=== PATIENT | male | born 1965 | race Caucasian/White ===

== ENCOUNTER → 2016-08-25 | Outpatient (CLI) | payer MEDICARE, OTHER ==
--- NOTE | 2016-08-25 12:02 | RADRPT ---
EXAM DATE/TIME: 08/25/2016 11:54 [facility] COMPARISON: CHEST PA & LAT, January 14, 2016, 8:36. INDICATIONS : Shortness of breath and chest pain. MEDICAL HISTORY : None. SURGICAL HISTORY : None. ENCOUNTER: Initial ACUITY: 2 days PAIN SCORE: 0/10 LOCATION: Left upper chest FINDINGS: PA and lateral views of the chest demonstrate the lungs to be symmetrically aerated without evidence of mass, infiltrate or effusion. The cardiomediastinal contours are unremarkable. Osseous structure s are intact. CONCLUSION: 1. No acute cardiopulmonary disease. Doe Khan MD on August 25, 2016 at 11:59 Board Certified Radiologist. This report was verified electronically.
== END ==
LOC: HRAD 11:38
PROVIDERS: ATTEND Specialist
DX: R05 Cough (principal)
CPT/HCPCS: 71020

== ENCOUNTER 2017-01-03 09:31 | Emergency (ER) | payer SELFPAY ==
[~2017-01-03] VITALS: Ht 177.8 cm; Wt 77.0 kg
[2017-01-03 09:33] VITALS: BP 114/72; PULSE 75; RESP 18; TEMP 97.6; O2SAT 98
[2017-01-03] MEDS ORDERED: ROBA500T PO (10:32)
--- NOTE | 2017-01-03 10:32 | PD ---
HPI Chief Complaint: Back/ Neck Pain or Injury Time Seen by Provider: 10:19 Travel History International Travel<30 days: No Contact w/Intl Traveler<30days: No Traveled to known affect area: No History of Present Illness HPI 51-year-old male presents emergency Department with complaint of right-sided low back pain that radiates down his right leg times one and half weeks. Says he lifted up a heavy bag and coughed at the same time causing the pain. Has history of sciatica many years ago. Denies encopresis, incontinence, saddle anesthesias. Denies paresthesias, loss of sensation, decreased range of motion , decreased strength bilateral lower extremities. Denies IV drug use or cancer. Denies fever, vomiting, abdominal pain, change in urine or stool. Symptoms are mild in severity. Pain is worse with sitting and movement. Pain is decreased with sleeping. Describes as a stabbing sensation. Saw his primary care provider, Dr. Ng, in regards to his complaint week ago and was given meloxicam which he has been taking for symptom management. Says Advil also relieve his symptoms. Allergies to aspirin. Has no other medical complaints. No other modifying factors or associated signs and symptoms. [facility] Social History Tobacco Use: No Allergies-Medications (Allergen,Severity, Reaction): Coded Allergies: aspirin (Verified Adverse Reaction, Unknown, Nausea/Vomiting, 01/03/17) Reported Meds & Prescriptions Reported Meds & Active Scripts Active Robaxin (Methocarbamol) 500 Mg Tab 500 Mg PO QID PRN Review of Systems Except as stated in HPI: all other systems reviewed are Neg Physical Exam Narrative GENERAL: Well-nourished, well-developed male patient, in no acute distress; afebrile, nontoxic-appearing SKIN: Warm and dry. HEAD: Atraumatic. Normocephalic. EYES: Pupils equal and round. No scleral icterus. No injection or drainage. ENT: Mucosa pink and moist. Airway patent. NECK: Trachea midline. CARDIOVASCULAR: Regular rate. RESPIRATORY: No accessory muscle use. GASTROINTESTINAL: Flat. MUSCULOSKELETAL: Bilateral lower extremities supple and non-tense with 2+ pedal pulses and sensory intact; with full range of motion and 5/5 strength. 2 + DTRs bilaterally. Active dorsiflexion and extension of bilateral feet. Right straight leg raise is positive for low back pain. Ambulatory in room with normal gait. Sitting up in bed at 90. No obvious deformities. No clubbing. No cyanosis. No edema. BACK: No midline point tenderness on palpation of the lumbar or thoracic spine. Tenderness on palpation of right lumbar paraspinal and iliosacral area. No obvious deformities. NEUROLOGICAL: Awake and alert. Oriented 3. No obvious cranial nerve deficits. Motor grossly within normal limits. Normal speech. Moves all extremities. 5/5 strength to all extremities. Sensory intact. PSYCHIATRIC: Appropriate mood and affect; insight and judgment normal. Data Data Last Documented VS Vital Signs Date Time Temp Pulse Resp B/P (MAP) Pulse Ox O2 Delivery O2 Flow Rate FiO2 01/03/17 10:38 18 01/03/17 09:33 97.6 75 114/72 (86) 98 Room Air Orders Orders Ed Discharge Order (01/03/17 10:37) Methocarbamol (Robaxin) (01/03/17 10:45) MDM Medical Decision Making Medical Screen Exam Complete: Yes Emergency Medical Condition: Yes Medical Record Reviewed: Yes Differential Diagnosis acute low back pain, sciatica, acute exacerbation of chronic low back pain Narrative Course 51-year-old male physical exam consistent with right-sided low back pain with sciatica. Denies encopresis, incontinence, saddle anesthesias. Denies IV drug use or cancer. No midline tenderness on palpation of the lumbar spine. Patient ambulatory in the room with normal gait. Neuro exam is unremarkable. Followed up with his primary care provider in regards to this same complaint one week ago and was given meloxicam. Robaxin administered in the ER. Robaxin prescribed for home. Instructed patient to follow up with primary care provider. Patient verbalizes understanding and agreement with treatment plan. Patient is medically cleared and stable for discharge. Discussed reasons to return to the emergency department. Patient agrees with treatment plan. The patients vital signs are stable and the patient is stable for outpatient follow- up and treatment. Patient discharged home, stable and in no acute distress. Diagnosis Primary Impression: Right-sided low back pain with sciatica Qualified Codes: M54.41 - Lumbago with sciatica, right side Referrals: Primary Care Physician Patient Instructions: Acute Low Back Pain (ED), General Instructions, Sciatica (ED) Additional Instructions: Tylenol or ibuprofen as directed and as needed for pain Robaxin as prescribed and as needed for muscle spasms Heating pad and/or ice to affected area to reduce pain Avoid aggravating activities; increase activity as tolerated Follow-up with primary care provider Return to emergency department immediately with worsening of symptoms Med/Other Pt SpecificInfo: Prescription(s) given Scripts Methocarbamol (Robaxin) 500 Mg Tab 500 MG PO QID Y for MUSCLE SPASM, #30 TAB 0 Refills Prov: Kayleen Fontenot 01/03/17 Disposition: 01 DISCHARGE HOME Condition: Stable Kayleen Fontenot Jan 03, 2017 10:32
[2017-01-03] MEDS ORDERED: METHOCARBAMOL 500 MG TAB PO ONE (10:45)
== END 2017-01-03 11:16 | disposition home or self-care (01) ==
LOC: NEPD 09:31
DX: M54.41 Lumbago with sciatica, right side (principal)
CPT/HCPCS: 99283

== ENCOUNTER → 2017-01-08 | Outpatient (CLI) | payer OTHER ==
[~2017-01-08] MED LIST: ROBA500T PO
--- NOTE | 2017-01-08 10:09 | RADRPT ---
EXAM DATE/TIME: 01/08/2017 09:23 [facility] COMPARISON: CHEST PA & LAT, August 25, 2016, 11:54. INDICATIONS : Cough. MEDICAL HISTORY : None. SURGICAL HISTORY : None. ENCOUNTER: Initial ACUITY: 2 weeks PAIN SCORE: 0/10 LOCATION: Bilateral chest FINDINGS: The lungs are symmetrically aerated. There is horizontal linear opacity in the medial left lower melanie g without focal areas of consolidation suggesting focal scarring or atelectasis. Both hemidiaphragms well delineated. The heart is normal size. CONCLUSION: Horizontally linear atelectasis or scarring medial left lower lung. The lungs are otherwise clear. Sony Varela MD on January 08, 2017 at 10:07 Board Certified Radiologist. This report was verified electronically.
== END ==
LOC: HRAD 09:08
PROVIDERS: ATTEND Specialist
DX: R05 Cough (principal)
CPT/HCPCS: 71020

== ENCOUNTER → 2017-02-01 | Outpatient (CLI) | payer OTHER ==
--- NOTE | 2017-02-01 12:07 | RADRPT ---
EXAM DATE/TIME: 02/01/2017 10:12 [facility] COMPARISON: CHEST PA & LAT, January 08, 2017, 9:23. INDICATIONS : Cough. Smoker. MEDICAL HISTORY : Smoker. SURGICAL HISTORY : Hernia. ENCOUNTER: Initial ACUITY: 1 day PAIN SCORE: 0/10 LOCATION: Bilateral chest FINDINGS: PA and lateral views of the chest demonstrate the lungs to be symmetrically aerated without evidence of mass, infiltrate or effusion. Stable linear scarring within the left base. The cardiomediastinal contours are unremarkable. Osseous structures are intact. CONCLUSION: No acute disease. Sony Cortez Jr., MD on February 01, 2017 at 12:05 Board Certified Radiologist. This report was verified electronically.
== END ==
LOC: HRAD 10:02
PROVIDERS: ATTEND Specialist
DX: R05 Cough (principal)
CPT/HCPCS: 71020